=== PATIENT | female | born 2000 ===

== ENCOUNTER 2024-06-17 10:12 | Inpatient (IN) | payer BC ==
[2024-06-17] VITALS (37 sets, daily range): BP systolic 107–149; BP diastolic 65–95
[~2024-06-17] VITALS: Ht 160 cm; Wt 100.0 kg
[2024-06-17] MEDS ORDERED: Ondansetron HCl 2 MG / ML 2ML Vial IV PRN (10:15)
[2024-06-17] MEDS ORDERED: FentaNYL Citrate 50 MCG/ML 2 ML Injection IV PRN ×2 (10:15→10:25)
[2024-06-17] MEDS ORDERED: Oxytocin 10 Unit / ML Vial IM PRN (10:15)
[2024-06-17] MEDS ORDERED: Carboprost Tromethamine 250 MCG/ML 1ML Amp IM PRN (10:15)
[2024-06-17] MEDS ORDERED: ePHEDrine Sulfate 50 MG/ML 1ML Injection XX PRN (10:15)
[2024-06-17] MEDS ORDERED: FentaNYL 2mcg/ml-Bup 0.1% Epd 250 ML EPI PRN (10:15)
[2024-06-17] MEDS ORDERED: OXYTOCIN/RINGER'S LACTATE 500 ML IV PRN (10:15)
[2024-06-17] MEDS ORDERED: Lactated Ringer's 1,000 ML IV PRN (10:15)
[2024-06-17] MEDS ORDERED: Penicillin G Potassium 5,000,000 UNITS in NS 250 ML IV ONE (10:15)
[2024-06-17] MEDS ORDERED: Acetaminophen 500 MG Tab PO PRN (10:15)
[2024-06-17] MEDS ORDERED: Lactated Ringer's 1,000 ML IV SCH ×2 (10:15)
[2024-06-17] MEDS ORDERED: Misoprostol 200 MCG Tab PR PRN (10:15)
[2024-06-17] MEDS ORDERED: Misoprostol 200 MCG Tab BC PRN (10:15)
[2024-06-17] MEDS ORDERED: Methylergonovine Maleate 0.2MG / ML 1ML Amp IM PRN (10:15)
[2024-06-17] MEDS ORDERED: OXYTOCIN/RINGER'S LACTATE 500 ML IV ONE (10:19)
[2024-06-17] MEDS ORDERED: Lactated Ringer's 1,000 ML IV ONE (10:19)
[2024-06-17] MEDS ORDERED: Calcium Carbonate 500 MG Tab Chew PO SCH (10:20)
[2024-06-17] MEDS ORDERED: FentaNYL Citrate 50 MCG/ML 2 ML Injection ONE (10:27)
[2024-06-17 10:42] LABS: BASOPHILS ABSOLUTE AUTO 0.05 K/mm3 (0.00-0.23); BASOPHILS PERCENT AUTO 1 % (0-2); EOSINOPHILS ABSOLUTE AUTO 0.09 K/mm3 (0.00-0.68); EOSINOPHILS PERCENT AUTO 1 % (0-6); Hematocrit 36.1 % (33.0-51.0); Hemoglobin 11.9 g/dL (11.5-16.0); IMMATURE GRAN ABSOLUTE AUTO 0.12 K/mm3 (0.00-0.10); IMMATURE GRAN PERCENT AUTO 1 % (0-1); LYMPHOCYTES ABSOLUTE AUTO 1.56 K/mm3 (0.84-5.20); LYMPHOCYTES PERCENT AUTO 15 % (21-46); MONOCYTES ABSOLUTE AUTO 0.78 K/mm3 (0.16-1.47); MONOCYTES PERCENT AUTO 8 % (4-13); Mean Corpuscular HGB 27.1 pg (26.0-34.0); Mean Corpuscular Volume 82 fL (80-100); Mean Platelet Volume 12.5 fL (9.1-12.4); NEUTROPHILS ABSOLUTE AUTO 7.66 K/mm3 (1.96-9.15); NEUTROPHILS PERCENT AUTO 75 % (41-73); Platelet Count 187 K/mm3 (150-400); RDW Coefficient Variation 14.1 % (11.7-14.2); RDW Standard Deviation 41.6 fL (35.1-46.3); Red Blood Cell Count 4.39 M/mm3 (3.80-5.20); White Blood Cell Count 10.26 K/mm3 (4.00-11.30)
[2024-06-17] MEDS ORDERED: Tranexamic Acid 1,000 MG in NS 100 ML IV SCH (10:50)
[2024-06-17] MEDS ORDERED: ONE-A-DAY PREN1 EAC1 (10:52)
[2024-06-17] MEDS ORDERED: Penicillin G Potassium 2,500,000 UNITS in Dextrose 5% 100 ML IV SCH (14:00)
[2024-06-18] VITALS (17 sets, daily range): BP systolic 110–143; BP diastolic 59–93
[2024-06-18] MEDS ORDERED: Calcium Carbonate 500 MG Tab Chew PO PRN (00:20)
[2024-06-18] MEDS ORDERED: OXYTOCIN/RINGER'S LACTATE 500 ML IV SCH ×2 (03:05→05:30)
[2024-06-18] MEDS ORDERED: Docusate Sodium 100 MG Cap PO PRN (05:25)
[2024-06-18] MEDS ORDERED: Witch Hazel/Glycerin PADS TOP PRN (05:25)
[2024-06-18] MEDS ORDERED: Acetaminophen 325 MG TABLET PO PRN (05:25)
[2024-06-18] MEDS ORDERED: Benzocaine Topical Anesthetic Spray 60GM TOP PRN (05:25)
[2024-06-18] MEDS ORDERED: Ibuprofen 400 MG Tab PO PRN (05:25)
[2024-06-18] MEDS ORDERED: FLU VACC TS2024-25(6MOS UP)/PF 45 MCG/0.5 ML SYRINGE IM ONE (05:25)
[2024-06-18] MEDS ORDERED: Misoprostol 200 MCG Tab PR PRN (05:30)
[2024-06-18] MEDS ORDERED: Methylergonovine Maleate 0.2MG / ML 1ML Amp IM PRN (05:30)
[2024-06-18] MEDS ORDERED: Lactated Ringer's 1,000 ML IV SCH (05:30)
[2024-06-18] MEDS ORDERED: Ketorolac Tromethamine 30mg Vial IV SCH (06:00)
[2024-06-18] MEDS ORDERED: Prenatal Vit/FE Fumarate/FA 1 Tab PO SCH (09:00)
--- NOTE | 2024-06-18 09:35 | NUR ---
Pt sleeping soundly left lateral, did not wake when RN into room.
--- NOTE | 2024-06-18 10:25 | NUR ---
Pt sleeping soundly, did not wake when RN entered room.
--- NOTE | 2024-06-18 11:21 | NUR ---
pt reports just back from [place] and feels like she may have voided, but not "100 percent" sure. Hat placed in toilet and pt encouraged to try to be up to void again by noon or soon.
[2024-06-18] MEDS ORDERED: Lanolin Cream TOP SCH (18:35)
[2024-06-19 00:01] VITALS: BP 133/81
[2024-06-19 06:21] LABS: BASOPHILS ABSOLUTE AUTO 0.07 K/mm3 (0.00-0.23); BASOPHILS PERCENT AUTO 1 % (0-2); EOSINOPHILS ABSOLUTE AUTO 0.25 K/mm3 (0.00-0.68); EOSINOPHILS PERCENT AUTO 2 % (0-6); Hemoglobin 9.1 g/dL (11.5-16.0); IMMATURE GRAN PERCENT AUTO 1 % (0-1); LYMPHOCYTES ABSOLUTE AUTO 2.85 K/mm3 (0.84-5.20); LYMPHOCYTES PERCENT AUTO 21 % (21-46); MONOCYTES ABSOLUTE AUTO 1.14 K/mm3 (0.16-1.47); MONOCYTES PERCENT AUTO 8 % (4-13); Mean Corpuscular HGB 27.7 pg (26.0-34.0); Mean Corpuscular HGB Conc 33.7 g/dL (31.5-36.5); Mean Corpuscular Volume 82 fL (80-100); Mean Platelet Volume 12.8 fL (9.1-12.4); NEUTROPHILS ABSOLUTE AUTO 9.22 K/mm3 (1.96-9.15); NEUTROPHILS PERCENT AUTO 68 % (41-73); Platelet Count 163 K/mm3 (150-400); RDW Coefficient Variation 14.5 % (11.7-14.2); RDW Standard Deviation 42.5 fL (35.1-46.3); Red Blood Cell Count 3.28 M/mm3 (3.80-5.20); White Blood Cell Count 13.63 K/mm3 (4.00-11.30)
[2024-06-19 08:05] VITALS: BP 136/86
[2024-06-19 11:22] VITALS: BP 133/81
[2024-06-19 17:29] VITALS: BP 147/91
[2024-06-20] MEDS ORDERED: Sertraline HCl 50 MG Tab PO SCH (09:00)
== END 2024-06-19 17:40 | disposition home or self-care (01) | DRG 807 ==
LOC: OBS 10:12 → BC 10:14 → OBS 10:18 → BC 10:21
PROVIDERS: ADMIT Obstetrics & Gynecology
PROC: 10E0XZZ Delivery of Products of Conception, External Approach (ICD-10-PCS; principal; 2024-06-18)
DX: O42.02 Full-term premature rupture of membranes, onset of labor within 24 hours of rupture (principal); Z37.0 Single live birth; Z3A.38 38 weeks gestation of pregnancy; H54.62 Unqualified visual loss, left eye, normal vision right eye; O99.892 Other specified diseases and conditions complicating childbirth; Z87.891 Personal history of nicotine dependence; O66.0 Obstructed labor due to shoulder dystocia
CPT/HCPCS: 36415; 51702; 85025; 86850; 86900; 86901; A9270; J1885; J2540; J2590; J3010; J7050; J7120